=== PATIENT | male | born 1950 | race Caucasian/White ===

== ENCOUNTER 2018-05-26 06:27 | Day surgery (SDC) | payer OTHER, MEDICARE ==
[2018-05-12 17:23] VITALS: BMI 22.0
[2018-05-26] MEDS ORDERED: TAMSULOSIN HCL 0.4 MG CAP ONE (06:43)
[2018-05-26] MEDS ORDERED: ROCURONIUM BROMIDE 50 MG/5 ML VIAL ONE (07:17)
[2018-05-26] MEDS ORDERED: fentaNYL CITRATE 250 MCG/5 ML VIAL ONE (07:17)
[2018-05-26] MEDS ORDERED: PROPOFOL 20 ML ONE ×4 (07:17→08:38)
[2018-05-26] MEDS ORDERED: MIDAZOLAM HCL 2 MG/2 ML SINGLE DOSE VIAL ONE (07:17)
[2018-05-26] MEDS ORDERED: SUCCINYLCHOLINE CHLORIDE 200 MG/10 ML VIAL ONE (07:17)
[2018-05-26] MEDS ORDERED: ONDANSETRON 4 MG/2 ML VIAL ONE (08:13)
[2018-05-26] MEDS ORDERED: DEXAMETHASONE SOD PHOSPHATE 4 MG/1 ML VIAL ONE ×3 (08:13→08:35)
[2018-05-26] MEDS ORDERED: ceFAZolin SODIUM 1 GM VIAL ONE (08:13)
[2018-05-26] MEDS ORDERED: BUPIVACAINE HCL/PF 2.5 MG/ML - 30 ML VIAL IJ ONE (08:20)
[2018-05-26] MEDS ORDERED: GLYCOPYRROLATE 0.2 MG/1 ML VIAL ONE ×2 (08:32)
[2018-05-26] MEDS ORDERED: NEOSTIGMINE METHYLSULFATE 0.5 MG/ML - 10 ML MDV ONE (08:32)
[2018-05-26] MEDS ORDERED: BUPIVACAINE HCL/PF 0.25% (2.5MG/ML) 10 ML VIAL IJ ONE ×2 (08:44)
[2018-05-26] MEDS ORDERED: DEXAMETHASONE SOD PHOSPHATE 4 MG/1 ML VIAL NR ONE (08:45)
[2018-05-26] MEDS ORDERED: DESFLURANE GAS 240 ML BOTTLE IH ONE (08:48)
--- NOTE | 2018-05-26 09:58 | OP ---
DATE OF OPERATION: 05/26/2018 PREOPERATIVE DIAGNOSIS: Left inguinal hernia. POSTOPERATIVE DIAGNOSIS: Left indirect inguinal hernia with attenuation of the direct inguinal floor as well as marked attenuation of the indirect ring. He also was noted to have a small direct inguinal hernia on the left side. PROCEDURES: Bilaterally laparoscopic inguinal herniorrhaphy with mesh. SURGEON: Marcelo Young MD WASTE WATER OPERATOR: Misael Garay DO ANESTHESIA: Gonzalo Perez MD (general) ESTIMATED BLOOD LOSS: Minimal. SPECIMEN: None. INDICATIONS/PROCEDURE: This is a 67-year-old gentleman with discomfort and a bulge in his right inguinal region. He has had this since October of 2017. It is causing him discomfort. He wished to have this repaired. Patient was identified and appropriately positioned on the operating room table. After placement of general anesthesia, the abdomen was prepped and draped in the usual sterile fashion with ChloraPrep. An infraumbilical incision was made deep into the subcutaneous tissues. The fascia identified on the right, divided sharply, the muscles split. Under direct vision, a dissector balloon followed by structural balloon placed. Also, under direct vision a suprapubic 11-mm port placed. The following structures on the right side identified, pubic tubercle, Coopers ligament, and inferior epigastric vessels, spermatic cord, and lateral abdominal wall. During this dissection, patient was noted to have attenuation of the direct inguinal floor, no obvious hernia. He had a large indirect inguinal hernia with a small cord lipoma, both reduced back into the preperitoneal space. The indirect ring was markedly attenuated. A 4.5 x 6 piece of Versatex mesh was keyhole placed through the suprapubic port site. The mesh wrapped around the cord structures laterally to reconstruct the internal ring. Laterally, the mesh anchored to the anterior abdominal wall and lateral abdominal wall. Medially, the mesh anchored to the anterior abdominal wall, pubic tubercle, and Coopers ligament. Upon completion of the right side, similar structures on the left side identified. Patient is status post left orchiectomy from 1969. He is noted to still have a spermatic cord containing the vas deferens. He was noted to have a direct inguinal hernia containing fat. This reduced back into the preperitoneal space. Another 4.5 x 6 piece of Versatex was keyhole placed through the suprapubic port site. The mesh wrapped around the cord (vas deferens) in the standard fashion to reconstruct the internal ring. Laterally, the mesh anchored to the anterior abdominal wall and lateral abdominal wall. Medially, the mesh well overlapped in the midline, anchored to the anterior abdominal wall, pubic tubercle, and Coopers ligament. The preperitoneal space desufflated under direct vision. The operative field was examined, noted to be hemostatic. Ports were removed. Under direct vision, a rectus sheath block was given to this gentleman on both sides. This was done with 0.25 % Marcaine and 4 mg of Decadron, total of 20 mL used. The operative field examined, once again noted to be hemostatic. The fascia at both port sites reapproximated with interrupted 0 Vicryl suture. All skin closed with 4-0 subcuticular Biosyn followed by Dermabond. The anterior abdominal wall and lateral abdominal wall anchors were all placed under direct counter palpation. The anchoring system used was the AbsorbaTack, and the mesh was Versatex. At the conclusion of this case, sponge counts were correct. ATTESTATION: Brief operative note handwritten on the preprinted form. [facility] was queried prior to giving any narcotics and was done electronically. Valerie HOLM [id number] cc: Yunior Grande MD MTDD
[2018-05-26] MEDS ORDERED: oxyCODONE HCL 5 MG TABLET PO PRN (10:02)
[2018-05-26] MEDS ORDERED: ONDANSETRON 4 MG/2 ML VIAL IVPUSH PRN (10:02)
[2018-05-26] MEDS ORDERED: LACTATED RINGERS SOLUTION 1,000 ML IV SCH (10:15)
[2018-05-26] MEDS ORDERED: oxyCODONE HCL 5 MG TABLET ONE (10:37)
[2018-05-26 16:47] VITALS: BP 132/72; PULSE 72; TEMP 98
== END 2018-05-26 16:25 | disposition home or self-care (01) ==
LOC: FASU 06:27
PROVIDERS: ATTEND Surgery
PROC: 0YUA4JZ Supplement Bilateral Inguinal Region with Synthetic Substitute, Percutaneous Endoscopic Approach (ICD-10-PCS; principal; 2018-05-26 08:00)
DX: K40.20 Bilateral inguinal hernia, without obstruction or gangrene, not specified as recurrent (principal); D17.6 Benign lipomatous neoplasm of spermatic cord
CPT/HCPCS: 94760